=== PATIENT | female | born 1970 | race Two or more races ===

== ENCOUNTER 2024-09-07 07:34 | Outpatient (CLI) | payer MEDICAID, SELFPAY ==
[2024-09-06 10:48] LABS: Basophils # (Auto) 0.1 Thou/mm3 (0.0-0.2); Basophils % (Auto) 1 % (0-2.5); Eosinophils # (Auto) 0.2 Thou/mm3 (0.0-0.5); Eosinophils % (Auto) 3 % (0-10); Hematocrit 38.8 % (36.0-46.0); Hemoglobin 13.1 g/dL (12.0-16.0); Immature Granulocytes % (Auto) 0 % (0-0); Immature Granulocytes Auto 0.02 Thou/mm3 (0.00-0.00); Lymphocytes % (Auto) 26 % (10-50); Mean Corpuscular HGB Conc 33.8 g/dl (31.0-37.0); Mean Corpuscular Hemoglobin 26.3 pg (25.0-35.0); Mean Corpuscular Volume 78 fL (80-100); Monocytes # (Auto) 0.5 Thou/mm3 (0.0-0.8); Monocytes % (Auto) 7 % (0-12); Neutrophils # (Auto) 4.7 Thou/mm3 (1.8-7.7); Neutrophils % (Auto) 62 % (37-80); Nucleated Red Blood Cell % 0 /100 WBC (0); Platelet Count 269 Thou/mm3 (140-440); RDW Standard Deviation 42.6 fL (36.4-46.3); Red Blood Count 4.98 Miln/mm3 (4.00-5.20); White Blood Count 7.5 Thou/mm3 (3.6-11.0)
[2024-09-06 10:56] LABS: Partial Thromboplastin Time 29.9 Seconds (22.0-36.0); Prothrombin Time 10.9 Seconds (9.0-12.2)
[2024-09-06 11:03] LABS: Blood Urea Nitrogen 19 mg/dL (9-23); Creatinine (Component) 0.7 mg/dL (0.6-1.3); eGFR > 60 See Note
[2024-09-07] VITALS (11 sets, daily range): BP systolic 126–152; BP diastolic 68–88; PULSE 47–52; RESP 11–19; TEMP 36.5–36.8; O2SAT 94–99; BMI 27.1
--- NOTE | 2024-09-07 08:00 | XR_ITS ---
Examination: CT abdomen without intravenous contrast. Coronal 2-D reconstructions. Sagittal 2-D reconstructions. Date and time of exam:September 07, 2024 0839 hours INDICATIONS: Diagnosis liver disease CTDI: vol (mGy): 8.83 DLP: (mGycm): 289 Technique: Axial images of the abdomen have been obtained, 3 mm slice thickness, without intravenous contrast 2-D sagittal coronal reconstructions Low dose protocols were performed. One or more of the following dose reduction techniques were used; automated exposure control, adjustment of the mA and/or KV according to patient size, use of iterative reconstruction technique. Findings: Liver is mildly irregular in contour with diffuse fatty infiltration Pneumobilia Spleen is not enlarged Absent gallbladder No extrahepatic biliary tract dilatation No pancreatic mass Fat-containing left adrenal nodule 18 mm Mild bilateral renal parenchymal scar formation No renal or ureteral calculi Ascending colon sutures Colonic diverticulosis Normal appendix IMPRESSION: Hepatomegaly 18 cm with primary hepatocellular disease, fatty liver
--- NOTE | 2024-09-07 08:30 | XR_ITS ---
Examination: CT-guided percutaneous right lobe liver biopsy CT abdomen without intravenous contrast Date and time of procedure: September 07, 2024 0919 hours INDICATIONS: Abnormal liver function tests on laboratory examination this month Informed consent provided. A timeout was completed verifying correct patient, procedure, site and positioning. . Technique: Axial 3 mm sections were obtained for localization of the right lobe the liver Appropriate area is marked. The patient's site was prepped and draped in sterile fashion Maximal sterile barrier technique utilized, including hand hygiene Local anesthesia was obtained with 1% lidocaine. Low dose protocols were performed. One or more of the following dose reduction techniques were used; automated exposure control, adjustment of the mA and/or KV according to patient size, use of iterative reconstruction technique. Utilizing CT fluoroscopic guidance 2 core biopsies obtained of the right lobe liver Patient appears in stable condition during this procedure. At completion of the procedure, the patient is in satisfactory condition. Estimated blood loss 0 cc Complete pathology report to follow. Impression: Successful CT-guided percutaneous right lobe liver biopsy
[2024-09-07] MEDS: SODIUM CHLORIDE 0.9% 250 ML 250 ML 20 ML IV (09:35)
[2024-09-07] MEDS: fentaNYL CIT INJ 50 mCg/ML AMP 2ML 75 MCG IVP (09:38)
--- NOTE | 2024-09-07 10:20 | XR_ITS ---
Examination: AP chest single view Technique one AP upright portable chest single view Exam date and time: September 07, 2024 1035 hours INDICATIONS: Post liver biopsy today. FINDINGS: No pneumothorax Normal heart size Lungs are clear IMPRESSION: No pneumothorax post biopsy today
--- NOTE | 2024-09-07 10:45 | PC.NURSE ---
PER DR TORO CHEST X RAY APPEARS NORMAL AND OK TO DISCHARGE PATIENT
== END 2024-09-07 11:12 | disposition home or self-care (01) ==
PROVIDERS: Radiology Diagnostic Radiology; PCP Internal Medicine Gastroenterology; Referring Provider Internal Medicine Gastroenterology; Visit Provider Internal Medicine Gastroenterology
DX: K74.02 Hepatic fibrosis, advanced fibrosis (principal); K73.9 Chronic hepatitis, unspecified; N28.89 Other specified disorders of kidney and ureter; K76.0 Fatty (change of) liver, not elsewhere classified; Z01.812 Encounter for preprocedural laboratory examination
CPT/HCPCS: 47000; 36415; 74150; 77012; 82565; 84520; 85025; 85610; 85730; J3010; J7050